=== PATIENT | female | born 1975 ===

== ENCOUNTER 2023-10-16 04:11 | Day surgery (SDC) | payer OTHER ==
[2023-10-10 12:12] VITALS: BMI 27.4
[2023-10-16] MEDS ORDERED: MIDAZOLAM HCL 2 MG/2 ML SINGLE DOSE VIAL ONE (12:40)
[2023-10-16] MEDS ORDERED: PROPOFOL 40 ML ONE (12:40)
[2023-10-16] MEDS ORDERED: ONDANSETRON 4 MG/2 ML VIAL IVPUSH PRN (12:44)
[2023-10-16] MEDS ORDERED: PROMETHAZINE HCL 25 MG/1 ML VIAL IVPB PRN (12:44)
[2023-10-16] MEDS ORDERED: ACETAMINOPHEN 1000 MG/100 ML BAG IVPB PRN (12:44)
[2023-10-16] MEDS ORDERED: oxyCODONE HCL 5 MG TABLET PO PRN (12:44)
[2023-10-16] MEDS ORDERED: LACTATED RINGERS SOLUTION 1,000 ML IV SCH (12:45)
[2023-10-16] MEDS ORDERED: ceFAZolin SODIUM 1 GM VIAL IVPB ONE (12:58)
[2023-10-16] MEDS ORDERED: SEVOFLURANE 250 ML BTL ONE (13:02)
[2023-10-16] MEDS ORDERED: KETOROLAC TROMETHAMINE 30 MG/1 ML VIAL ONE (13:04)
[2023-10-16] MEDS ORDERED: ceFAZolin SODIUM 1 GM VIAL ONE (13:08)
[2023-10-16] MEDS ORDERED: DEXAMETHASONE SOD PHOSPHATE 4 MG/1 ML VIAL ONE (13:08)
[2023-10-16] MEDS ORDERED: ONDANSETRON 4 MG/2 ML VIAL ONE (13:08)
[2023-10-16] MEDS ORDERED: ACETAMINOPHEN INJECTION 100 ML IVPB ONE (14:41)
[2023-10-16 15:04] VITALS: TEMP 97.5
[2023-10-16 15:45] VITALS: BP 112/74; PULSE 63; RESP 20
== END 2023-10-16 16:58 | disposition home or self-care (01) ==
LOC: JASU-SURG 04:11
PROVIDERS: ATTEND Urology
PROC: 0TC78ZZ Extirpation of Matter from Left Ureter, Via Natural or Artificial Opening Endoscopic (ICD-10-PCS; principal; 2023-10-16 12:30)
PROC: 0T778DZ Dilation of Left Ureter with Intraluminal Device, Via Natural or Artificial Opening Endoscopic (ICD-10-PCS; 2023-10-16 12:30)
DX: N20.1 Calculus of ureter (principal)
CPT/HCPCS: 81025; 94760; C1758; C2617